=== PATIENT | female | born 1990 ===

== ENCOUNTER 2019-11-18 17:00 | Emergency (ER) | payer MEDICAID ==
[~2019-11-18] VITALS: Ht 160 cm; Wt 52.3 kg
[2019-11-18 17:03] VITALS: BP 110/67
[2019-11-18] MEDS ORDERED: IPRATROPIUM BROMIDE 0.5 MG/2.5 ML NEB SOLUTION NEB ONE (17:15)
[2019-11-18] MEDS ORDERED: ALBUTEROL SULFATE 2.5 MG/0.5 ML NEB SOLUTION NEB ONE (17:15)
== END 2019-11-18 18:55 | disposition left against medical advice (07) ==
LOC: EMS 17:01
DX: R06.02 Shortness of breath (principal); Z53.21 Procedure and treatment not carried out due to patient leaving prior to being seen by health care provider
CPT/HCPCS: 94640

== ENCOUNTER 2020-01-23 18:20 | Emergency (ER) | payer MEDICAID ==
[~2020-01-23] VITALS: Ht 157.5 cm; Wt 54.5 kg
[2020-01-23] MEDS ORDERED: ALBU8HFA IH (18:24)
[2020-01-23] MEDS ORDERED: ALBUTEROL SULFATE HFA 90 MCG/PUFF 8 GM INHALER IH ONE ×2 (18:45→20:30)
[2020-01-23 19:52] VITALS: BP 107/80
[2020-01-23] MEDS ORDERED: IPRATROPIUM BROMIDE HFA 17 MCG/PUFF 12.9 GM INHALER IH ONE (20:00)
[2020-01-23] MEDS ORDERED: DEXAMETHASONE SOD PHOS 4 MG/ML 5 ML VIAL IM ONE (20:00)
== END 2020-01-23 20:40 | disposition left against medical advice (07) ==
LOC: EDBD 18:25 → EMS 18:25
DX: J45.909 Unspecified asthma, uncomplicated (principal); F11.10 Opioid abuse, uncomplicated; F17.210 Nicotine dependence, cigarettes, uncomplicated
CPT/HCPCS: 71045; 81025; 94640; 96372; 99284; 99406; J1100; J3535